=== PATIENT | male | born 1985 | race Caucasian/White ===

== ENCOUNTER 2018-08-11 15:00 | Emergency (ER) | payer MEDICARE, OTHER ==
[2018-08-11] MEDS: SOD CHLORIDE 0.9% 1,000 ML IV (16:20)
[2018-08-11] MEDS ORDERED: IOHEXOL 300MG/ML 150 ML BTL (16:47)
[2018-08-11] MEDS ORDERED: SOD CHLORIDE 0.9% 100 ML (16:47)
[2018-08-11 16:48] LABS: ADD MAN DIFF? NO
[2018-08-11 16:58] LABS: WHITE BLOOD COUNT 5.8 10^3/ul (4.8-10.8)
[2018-08-11 16:58] LABS: BASOPHIL # 0.1 10^3/ul (0.0-0.1); BASOPHILS % 0.9 % (0.0-2.0); EOSINOPHILS # 0.3 10^3/ul (0.0-0.5); EOSINOPHILS % 4.7 % (0.0-7.0); HEMATOCRIT 46.4 % (42.0-52.0); HEMOGLOBIN 15.2 g/dl (14.0-18.0); LYMPHOCYTES # 2.2 10^3/ul (0.8-2.9); LYMPHOCYTES % 38.2 % (15.0-51.0); MEAN CORPUSCULAR HEMOGLOBIN 29.8 pg (29.0-33.0); MEAN CORPUSCULAR HGB CONC 32.8 g/dl (32.0-37.0); MEAN PLATELET VOLUME 11.7 fl (7.4-10.4); MONOCYTE # 0.7 10^3/ul (0.3-0.9); MONOCYTES % 11.6 % (0.0-11.0); NEUTROPHIL # 2.5 10^3/ul (1.6-7.5); NEUTROPHILS % 43.6 % (39.0-77.0); PLATELET COUNT 209 10^3/UL (140-415); RED CELL DISTRIBUTION WIDTH 12.2 % (11.5-14.5)
[2018-08-11 17:15] LABS: ALANINE AMINOTRANSFERASE 43 IU/L (13-69); ALBUMIN 3.9 g/dl (3.3-4.9); ALBUMIN/GLOBULIN RATIO 1.39; ALKALINE PHOSPHATASE 92 IU/L (42-121); ANION GAP 13 (8-16); ASPARTATE AMINO TRANSFERASE 34 IU/L (15-46); BILIRUBIN,INDIRECT 0.3 mg/dl (0-1.1); BILIRUBIN,TOTAL 0.3 mg/dl (0.2-1.3); BLOOD UREA NITROGEN 8 mg/dl (7-20); CALCIUM 9.2 mg/dl (8.4-10.2); CARBON DIOXIDE 28 mmol/L (21-31); CHLORIDE 108 mmol/L (97-110); CREATININE 0.69 mg/dl (0.61-1.24); GLUCOSE 112 mg/dl (70-220); LIPASE 106 U/L (23-300); POTASSIUM 4.1 mmol/L (3.5-5.1); SODIUM 145 mmol/L (135-144); TOTAL PROTEIN 6.7 g/dl (6.1-8.1)
[2018-08-11 17:24] LABS: ADD UMIC NO; UR ASCORBIC ACID NEGATIVE (NEGATIVE); UR BILIRUBIN (Dip) NEGATIVE (NEGATIVE); UR BLOOD (Dip) NEGATIVE (NEGATIVE); UR CLARITY CLEAR (CLEAR); UR COLOR STRAW (YELLOW); UR GLUCOSE (Dip) NEGATIVE (NEGATIVE); UR KETONES (Dip) NEGATIVE (NEGATIVE); UR LEUKOCYTE ESTERASE (Dip) NEGATIVE Leu/ul (NEGATIVE); UR NITRITE (Dip) NEGATIVE (NEGATIVE); UR SPECIFIC GRAVITY (Dip) 1.004 (1.003-1.030); UR TOTAL PROTEIN (Dip) NEGATIVE (NEGATIVE); UR UROBILINOGEN (Dip) NEGATIVE (NEGATIVE)
== END 2018-08-11 18:51 | disposition home or self-care (01) ==
LOC: FTE 15:00
DX: R10.9 Unspecified abdominal pain (principal); F84.0 Autistic disorder
CPT/HCPCS: 36415; 74177; 80053; 81003; 83690; 85025; 99285-25

== ENCOUNTER 2019-03-31 22:36 | Emergency (ER) | payer MEDICARE, OTHER ==
[2019-04-01] MEDS: IBUPROFEN 200 MG TAB PO (02:28)
[2019-04-01] MEDS: ALBUTEROL 0.083% (NEB) 2.5 MG/3 ML AMP HHN (03:27)
[2019-04-01] MEDS: CEFTRIAXONE 1 GM INJ IM (03:28)
== END 2019-04-01 04:14 | disposition home or self-care (01) ==
LOC: FTE 22:36
DX: J20.8 Acute bronchitis due to other specified organisms (principal); J45.909 Unspecified asthma, uncomplicated
CPT/HCPCS: 71046; 93005; 94664; 96372; 99284-25

== ENCOUNTER 2019-07-15 12:51 | Emergency (ER) | payer MEDICARE, OTHER | END 2019-07-15 14:00 | disposition home or self-care (01) | LOC: E/R 14:00 | DX: R07.89 Other chest pain (principal); J45.909 Unspecified asthma, uncomplicated; F84.0 Autistic disorder | CPT/HCPCS: 71045; 99284-25 ==

== ENCOUNTER 2019-07-17 10:23 | Emergency (ER) | payer MEDICARE, OTHER ==
[2019-07-17] MEDS: IBUPROFEN 800 MG TAB PO (11:40)
[2019-07-17] MEDS: DEXAMETHASONE 4 MG TAB PO (11:40)
[2019-07-17] MEDS: IPRATROPIUM (NEB) 0.5 MG/2.5 ML AMP NEB (11:44)
[2019-07-17] MEDS: ALBUTEROL 0.083% (NEB) 2.5 MG/3 ML AMP NEB (11:44)
== END 2019-07-17 11:52 | disposition home or self-care (01) ==
LOC: E/R 10:23
DX: R07.89 Other chest pain (principal); J45.909 Unspecified asthma, uncomplicated
CPT/HCPCS: 93005; 94664; 99283-25

== ENCOUNTER 2019-08-03 11:17 | Emergency (ER) | payer MEDICARE, OTHER ==
[2019-08-03] MEDS: ACETAMINOPHEN 325 MG TAB PO (14:02)
== END 2019-08-03 14:37 | disposition home or self-care (01) ==
LOC: FTE 11:17
DX: R51 Headache (principal); J45.909 Unspecified asthma, uncomplicated
CPT/HCPCS: 71045; 99283-25